=== PATIENT | male | born 1990 | race Caucasian/White ===

== ENCOUNTER 2018-08-04 22:33 | Emergency (ER) | payer SELFPAY ==
[2018-08-04 22:34] VITALS: BP 129/83; PULSE 94; RESP 16; TEMP 37.1; O2SAT 99; BMI 19.6
[2018-08-04 22:43] VITALS: PULSE 83; RESP 14; O2SAT 98
--- NOTE | 2018-08-04 22:58 | ED.VISSUMM ---
- ER Visit Summary Date of Service: 08/04/18 Chief Complaint: Vomiting History of Present Illness: The patient is a 28 M presenting with vomiting and diarrhea. Patient states this started this morning. He has had multiple episodes of vomiting and diarrhea. He denies blood in his stool or emesis. He states he started having lower back pain after vomiting. He believes he may have strained his back while vomiting. He states his symptoms started after drinking a Monster drink this morning. He denies sick contacts. Denies recent antibiotics. Denies recent travel. He complains of right ear pain which has been intermittent for the past year. He denies other complaints. Physical Examination: Vitals are stable. Patient is afebrile. Alert no acute distress. HEENT exam is unremarkable. TMs normal bilaterally Neck is supple. Lungs are clear and equal bilaterally. Heart is regular rate and rhythm. Abdomen is soft mild epigastric tenderness with no rebound or guarding Back: Left paraspinal lumbar muscle tenderness, no midline tenderness Extremities are unremarkable. Skin is warm and dry. No focal neurologic deficit. Remainder of exam is unremarkable. Emergency Department Course and Treatment: Patient was given IV Toradol, Zofran. CBC, chemistries unremarkable other than potassium 3.2. He is given potassium oral replacement. Liver lipase are normal. Urinalysis shows 10-25 white blood cells, 0-5 epithelial cells. Patient denies penile drainage or possibility of STD. Urine culture was sent. He was given Cipro. He is able to tolerate p.o. in the emergency department. Advised to follow-up with Dr. Casillas stone spreader operator for no doc. Advised return to ED if worsening complaints. Disposition: Discharge home Impression: Vomiting and diarrhea; UTI This note was generated with [employer] dictation software. It may contain incorrect words, spelling, and punctuation that were not noted in review of the chart prior to signing ED Disposition - Plan for ED Patient: Instructions: ED Diet Vomiting Diarrhea, ED UTI Cystitis Male Prescriptions: Ciprofloxacin [Cipro] 500 mg PO BID #14 tablet Referrals: Jose Casillas DO [NON CLINICAL AFFILIATE] - Care Physician,No Primary [Primary Care Provider] -
[2018-08-04 23:20] LABS: Bacteria 0 SEEN /hpf (None Seen); Red Blood Cells-Urine 0 SEEN /hpf (0-5)
[2018-08-04 23:23] LABS: Color, Urine Yellow (Yellow); Glucose, Dipstick Normal (Normal); Ketone-Dipstick Negative (Negative); Leukocyte Esterase-Dipstick 100 /ul (Negative); Nitrite-Dipstick Negative (Negative); Occult Blood-Urine Negative /ul (Negative); Protein-Dipstick 15 mg/dl (Negative); Urine Bilirubin Dipstick Negative (Negative); Urine Clarity Sl. Cloudy (Clear); Urine Urobilinogen 4 mg/dl (Normal)
[2018-08-04] MEDS: 0.9% Normal Saline 1,000 ML 1000 ML IV (23:30)
[2018-08-04] MEDS: Ketorolac 30 MG/ML Syringe IV (23:31)
[2018-08-04] MEDS: Ondansetron 4 MG/2 ML Vial IV (23:31)
[2018-08-04 23:40] LABS: Absolute Lymphocyte Count 0.93 X10^3/ul (0.83-4.51); Absolute Neutrophil Count 2.6 X10^3/uL (2.0-7.7); Basophil# 0.01 X10^3/uL; Basophil% 0.2 % (0-1); Eosinophil# 0.04 X10^3/uL; Hematocrit 38.1 % (40-54); Hemoglobin 12.8 g/dl (13.0-16.5); Lymphocyte # 0.93 X10^3/ul (4.0); Lymphocyte % 22.7 % (19-41); Mean Corp Hgb Conc 33.6 g/gl (32-36); Mean Corpuscular Volume 89.2 fL (80-94); Mean Platelet Vol. 10.1 fl (6.2-12.0); Monocyte# 0.57 X10^3/uL; Monocyte% 13.9 % (0-10); Neutrophil # 2.55 X10^3/uL (2.7-7.7); Neutrophil % 62.2 % (47-70); POSITIVE COUNT NO; POSITIVE DIFFERENTIAL NO; POSITIVE MORPHOLOGY NO; Platelet Count 204 K/mm3 (150-450); RBC Distribution Width CV 13.8 % (11.6-14.6); RBC Distribution Width SD 44.8 fl (35.1-43.9); Red Blood Count 4.27 M/mm3 (4.6-6.2); White Blood Count 4.1 K/mm3 (4.4-11.0)
[2018-08-04 23:46] LABS: Mucous, Urine 2+ /hpf (<or=2+); Squamous Epithelial Cells - UA 0-5 SEEN /hpf (0-5)
[2018-08-04 23:49] LABS: White Blood Cells 10-25 SEEN /hpf (0-5)
[2018-08-04 23:50] LABS: ALB/GLOB Ratio 1.4 RATIO (0.9-2.4); AST(SGOT) 16 U/L (15-37); Alanine Aminotransfer ALT/SGPT 19 U/L (16-61); Albumin, Serum 4.1 g/dL (3.2-5.0); Alkaline Phosphatase 43 U/L (45-117); Anion Gap 4 (5-15); BUN 8 mg/dL (7-18); BUN/Creat Ratio 9.4 RATIO (10-20); Calcium,Total 8.4 mg/dL (8.5-10.1); Chloride 105 mmol/L (98-107); Creatinine, Serum 0.85 mg/dL (0.70-1.30); EST Glomerular Filtration Rate 116 mL/min (>60); Est Glom Filt Rate - Afr Amer 141 mL/min (>60); Estimated Creatinine Clearance 125.89 ml/min; Glucose 105 mg/dL (74-106); Lipase 100 U/L (73-393); Potassium 3.2 mmol/L (3.5-5.1); Protein, Total 7.1 g/dL (6.4-8.2); Sodium Level 139 mmol/L (136-145)
[2018-08-04 23:56] VITALS: BP 106/68; PULSE 80; RESP 16; O2SAT 97
--- NOTE | 2018-08-05 00:06 | ED.DEP ---
ED Disposition - Plan for ED Patient: Instructions: ED Diet Vomiting Diarrhea, ED UTI Cystitis Male Prescriptions: Ciprofloxacin [Cipro] 500 mg PO BID #14 tablet Referrals: Care Physician,No Primary [Primary Care Provider] - Jose Casillas DO [NON CLINICAL AFFILIATE] -
[2018-08-05] MEDS: Ciprofloxacin 500 MG Tablet PO (00:16)
[2018-08-05 00:17] VITALS: BP 125/67; PULSE 78; RESP 16; O2SAT 98
== END 2018-08-05 00:19 | disposition home or self-care (01) ==
PROVIDERS: Emergency Provider Emergency Medicine
DX: N39.0 Urinary tract infection, site not specified (principal); R11.2 Nausea with vomiting, unspecified; R19.7 Diarrhea, unspecified; E87.6 Hypokalemia; M54.5 Low back pain; H92.01 Otalgia, right ear
CPT/HCPCS: 80053; 81001; 83690; 85025; 87077; 87086; 87088; 96361; 96374; 96375; 99284; J7030; A4216; J2405

== ENCOUNTER 2018-12-21 08:32 | Emergency (ER) | payer SELFPAY ==
[2018-12-21 08:33] VITALS: BP 140/88; PULSE 58; RESP 17; TEMP 36.5; O2SAT 100; BMI 18.6
[2018-12-21] MEDS: Ibuprofen 600 MG Tablet PO (08:58)
--- NOTE | 2018-12-21 09:00 | ED.DCSUM_ITS ---
History of Present Illness Chief Complaint: Dental Informant: Patient Onset: Hours - 8 Current Severity: Severe Maximum Severity: Severe Narrative: Patient is a 28-year-old male with no significant past medical history p resenting with left lower dental pain. He states it started last night. Pain his been persistent. Patient took Motrin around midnight but has had none since. He denies any associated fever difficulty swallowing. He states he has a bad tooth but is never had problems like this before. He does not currently have a dentist. He does chew tobacco. He denies any fever or chills. He denies any other complaints at this time. Past Medical History - Allergies and Home Meds Allergies/Adverse Reactions: Allergies No Known Allergies Allergy (Verified 12/21/18 08:33) Primary Care Physician: Care Physician,No Primary [Primary Care Provider] - Past Medical History: None Surgical History: noncontributory Smoking Status: Never smoker Review of Systems All systems negative except as indicated General: Denies: Chills ENT: Reports: - - left lower dental pain Physical Exam Vital Signs/Narrative: Vital Signs Temp Pulse Resp BP Pulse Ox 12/21/18 08:33 97.7 F L 58 L 17 140/88 H 100 Inital Vital Signs reviewed: Yes General: Well nourished, Well developed, No Acute Distress Head: Normocephalic, Atraumatic Eyes: Perrl, EOMI ENT: Moist mucous membranes, No rhinorrhea, - - Multiple caries and poor dentition diffusely, pain and swelling at the base of the first lower left molar. Sublingual mucosa is soft Neck: Supple, Nontender, No lymphadenopathy Cardiovascular: Regular rate, Regular rhythm, No murmurs Respiratory: No distress, CTA bilaterally, Chest nontender Abdomen: Soft, Nontender, Nondistended, Normal bowel sounds Back: Nontender, Normal Inspection Extremities: Nontender, No edema Skin: Normal color, No rash Neurological: Alert, Oriented x3, Cranial nerves II-XII grossly intact, Normal Strength, Normal Sensation Psychological: Normal affect, Normal Mood Diagnostic/Tx/Re-eval - Medical Decision Making He is evaluated for dental pain. He appears nontoxic in no acute distress. He does not have an obvious abscess but he does have swelling of the gums next to his affected tooth. Nerve block is performed with improvement of his symptoms. A stab incision is made to the site but no purulence is expressed. Patient is given a dose of Motrin as well as penicillin in the ER for suspected dental infection. He is given the dental referral sheet. Patient is counseled on signs and symptoms requiring return to the emergency room. Patient verbalizes agreement and understand this plan. Patient discharged home in stable and improved condition. Procedures Procedure(s): Dental block. 3 cc of 1% lidocaine injected into the left side for the inferior alveolar block. 0.5 cc of 1% lidocaine injected at the base of the affected molar for pupil block. Patient tolerated procedure well with good results. No immediate complication. ED Disposition - Plan for ED Patient: Disposition: Home or Assisted Living Diagnosis: Abscess, dental Instructions: Dental Abscess Prescriptions: Ibuprofen 600 mg PO 4X/DAY #20 tab Prescription Printed Penicillin V Potassium 500 mg PO 4X/DAY #40 tab Prescription Printed Referrals: Care Physician,No Primary [Primary Care Provider] -
[2018-12-21] MEDS: Penicillin Vk 250 MG Tablet 500 MG PO (09:22)
== END 2018-12-21 09:24 | disposition home or self-care (01) ==
PROVIDERS: Emergency Provider Emergency Medicine
DX: K04.7 Periapical abscess without sinus (principal); K02.9 Dental caries, unspecified; F17.220 Nicotine dependence, chewing tobacco, uncomplicated
CPT/HCPCS: 41800; 64402; 99283

== ENCOUNTER 2021-12-26 12:23 | Emergency (ER) | payer MEDICAID, SELFPAY ==
[2021-12-26 12:24] VITALS: BP 133/85; PULSE 114; RESP 22; TEMP 36.2; O2SAT 99; BMI 19.1
--- NOTE | 2021-12-26 13:15 | ED.VIS.DENTA ---
HPI History of Present Illness Chief Complaint: Dental Informant: patient Onset/Context/Timing Onset: Today Context: Sudden Onset Timing: Continuous Quality: Throbbing Location: Left upper incisors Worsened by: Cold liquids Relieved by: - (Nothing) Associated Symptoms Assocated Symptom - Dental: face swelling and cold sensitivity; Negative for fever, jaw swelling or hot sensitivity Narrative Narrative: Patient presents with left upper dental pain that began this morning. Patient states he woke up and noticed some swelling over his left upper cheek area. Patient describes his pain as throbbing. Patient states it is worse with drinking cold liquids. Patient states it is mainly over the left upper incisors. Patient denies any fevers or chills. Patient denies any hot sensitivity. Patient denies any difficulty breathing or difficulty swallowing. PFSH PFSH Medical History no medical history no medical history Home Medications ibuprofen 600 mg tablet 600 mg PO 4X/DAY #20 tabs 12/21/18 [Rx Last Taken Unknown] penicillin V potassium 500 mg tablet 500 mg PO 4X/DAY #40 tabs 12/26/21 [Rx Last Taken Unknown] Allergy/AdvReac Type Severity Reaction Status Date / Time No Known Allergies Allergy Verified 12/26/21 12:24 Surgical History no surgical history no surgical history Social History Smoking Status: Never smoker ROS ROS ED Constitutional Constitutional ED: Denies chills or fever(s) Eyes Eyes: Denies blurry vision or change in vision ENT ENT ED: Reports rhinorrhea; Denies sore throat Cardiovascular Cardiovascular: Denies chest pain or palpitations Respiratory/Chest Respiratory/Chest: Denies cough or dyspnea Gastrointestinal Gastrointestinal: Denies nausea or vomiting Genitourinary Genitourinary ED: Denies dysuria or hematuria Musculoskeletal Musculoskeletal: Denies back pain or neck pain Integumentary Denies abscess or rash Neurologic Neurologic: Denies headache(s) or weakness Allergic/Immunologic Allergic/Immunologic ED: Denies mouth swelling or urticaria EXAM Physical Exam Const Vital Signs: 12/26/21 12:24 Temperature 97.2 F L Temperature Source Temporal Pulse Rate 114 H Respiratory Rate 22 H Blood Pressure 133/85 H Blood Pressure Mean 101 Pulse Ox 99 Oxygen Delivery Method Room Air Positive well nourished and well developed General Appearance ED: well developed and NAD HEENT HEENT Narrative: There is tenderness over the left upper incisors. There are no obvious dental caries. There are some gingival edema around these teeth. There is no fluctuance. There is no discharge or drainage. Oral mucosa is pink and moist. Oropharynx is clear. Airway is patent. Neck is supple. Trachea is midline. There is no JVD or lymphadenopathy. There is no sublingual edema or erythema. There is no evidence of Tin's angina. Mouth ED: Yes oral and palatal mucosa normal Mouth: oral and palatal mucosa normal Teeth and Gingiva: gingiva abnormal Positive for gingival edema Eyes PERRL and EOMs intact bilaterally Neck supple and no JVD General: normal visual inspection; Negative for anterior neck swelling, tenderness or submandibular swelling Resp normal respiratory effort and clear to auscultation bilaterally Cardio regular rate and regular rhythm Neuro oriented x3, CN's II-XII intact bilaterally, moves all extremities, no focal motor deficits and no sensory deficits noted Sensorium / Orientation: alert Motor Exam: strength 5/5 throughout Psych mental status grossly normal MDM MDM MDM Narrative Medical decision making narrative: Patient was given a dose of Pen-Vee K here. Patient was given a prescription for Pen-Vee K. Patient was given a dental referral list. Patient was instructed to take Tylenol or ibuprofen as needed for pain. Patient was instructed to follow-up with a dentist in 5 to 7 days. Patient understood and was agreeable with the plan. All questions were answered. Discharge Plan Triage Chief Complaint: Dental Other Complaint: Allergic Reaction ED Provider: Tonny Strickland Dx/Rx/DC Orders Clinical Impression: Gingivitis Instructions: ED Dental Pain Prescriptions: Continued penicillin V potassium 500 MG tablet 500 mg PO 4X/DAY Qty: 40 0RF No Action ibuprofen 600 MG tablet 600 mg PO 4X/DAY Qty: 20 0RF Primary Care Provider: Care Physician,No Primary Referrals: Care Physician,No Primary [Primary Care Provider] - Dentist,Your [STAFF PHYSICIAN] - 5-7 Days Disposition Disposition: Home, Self Care
== END 2021-12-26 13:30 | disposition home or self-care (01) ==
PROVIDERS: Emergency Provider Emergency Medicine; Visit Provider Emergency Medicine
DX: K05.10 Chronic gingivitis, plaque induced (principal)
CPT/HCPCS: 99282

== ENCOUNTER 2022-09-01 12:00 | Emergency (ER) | payer MEDICAID, SELFPAY ==
[2022-09-01 12:01] VITALS: BP 144/80; PULSE 81; RESP 16; TEMP 36.4; O2SAT 100; BMI 19.4
[2022-09-01] MEDS: Ibuprofen 600 MG Tablet PO (12:32)
--- NOTE | 2022-09-01 12:44 | EDS_ITS ---
HPI History of Present Illness Chief Complaint: Upper Extremity Injury Informant: patient Narrative Narrative: Right hand dominant male increasing right upper arm pain today. Was helping his father lift and move refrigerator 4 days ago states mild symptoms Saturday and . 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 There is no direct injuries. There is no new injuries. Pain just worsened today with movement. No paresthesias. Prior similar symptoms: No PFSH PFSH Home Medications ibuprofen 600 mg tablet 600 mg PO 4X/DAY #20 tabs 12/21/18 [Rx Last Taken Unknown] penicillin V potassium 500 mg tablet 500 mg PO 4X/DAY #40 tabs 12/26/21 [Rx Last Taken Unknown] ibuprofen 600 mg tablet 600 mg PO Q6H PRN PRN pain #20 TABLETS 09/01/22 [Rx Last Taken Unknown] Allergy/AdvReac Type Severity Reaction Status Date / Time No Known Allergies Allergy Verified 09/01/22 12:03 Social History Smoking Status: Never smoker ROS ROS ED Constitutional Constitutional ED: Denies chills, fever(s) or sweats Eyes Eyes: Denies change in vision ENT ENT ED: Denies dysphagia or sore throat Cardiovascular Cardiovascular: Denies chest pain, leg edema, palpitations or racing heartbeat Respiratory/Chest Respiratory/Chest: Denies cough, dyspnea or dyspnea on exertion Gastrointestinal Gastrointestinal: Denies abdominal pain, diarrhea, nausea or vomiting Genitourinary Genitourinary ED: Denies dysuria, hematuria or urinary frequency Musculoskeletal Musculoskeletal: Reports extremity pain; Denies back pain or neck pain Integumentary Denies rash or wounds Neurologic Neurologic: Denies headache(s), paresthesias or weakness EXAM Physical Exam Const Vital Signs: 09/01/22 12:01 Temperature 97.5 F L Temperature Source Temporal Pulse Rate 81 Respiratory Rate 16 Blood Pressure 144/80 H Blood Pressure Mean 101 Pulse Ox 100 Oxygen Delivery Method Room Air Positive well nourished and well developed General Appearance ED: well developed and NAD HEENT Reports moist mucous membranes normocephalic and atraumatic Eyes PERRL, EOMs intact bilaterally and conjunctivae normal General Eye ED: Yes normal appearance of both eyes Neck no lymphadenopathy and supple General: Negative for tenderness Chest Wall Chest: Negative for tenderness Resp normal respiratory effort and normal air movement Effort and Inspection: symmetric chest movement; Negative for respiratory distress Cardio regular rate, regular rhythm and no murmurs Peripheral Pulses: pulses 2+ throughout GI normal to inspection, nondistended, normoactive bowel sounds and non-tender Palpation: Negative for guarding or rebound tenderness present Back/Spine no CVA tenderness and no thoracic nor lumbar tenderness Extremity Extremity Narrative: Left upper extremity: Full range of motion without tenderness neuro vas intact distally. Right upper extremity: No deformities, tender palpation posterior shoulder reproducible with external rotation against resistance. There is tenderness also along the biceps. There is no defects. Negative speeds test. Skin intact. Neuro vas intact distally. General Extremety ED: Yes tenderness; Negative for edema General Extremity: Negative for edema Neuro oriented x3 and no sensory deficits noted Sensorium / Orientation: awake and alert Skin no rashes or lesions noted and no wounds MDM MDM MDM Narrative Medical decision making narrative: Interventions / MDM: Differential diagnosis: Muscle strain biceps muscle and rotator cuffs. Diagnosis considered but do not suspect: No clinical dislocation concerns. No clinical fracture concerns. My EKG interpretation: N/A Imaging independently reviewed and interpreted by myself: N/A External documents reviewed: N/A Test considered but not ordered:N/A ED course: Patient nontoxic exam concerns more consistent of strain of muscles both biceps and rotator cuff. No deformities. He started on NSAID therapy. He denies gastric ulcers kidney injuries or any irritable bowel disease. He is given follow-up as an outpatient. Work note given for today. Re-evaluation: stable Disposition discussed with patient/family/significant other: Patient Case discussed with consulting clinician: N/A Discharge Plan Triage Chief Complaint: Upper Extremity Injury ED Provider: Sean Kincaid Dx/Rx/DC Orders Clinical Impression: Muscle strain of right upper arm, Arm pain, right Instructions: ED Muscle Strain, Extremity Prescriptions: New ibuprofen 600 mg tablet 600 mg PO Q6H PRN PRN (Reason: pain) Qty: 20 0RF No Action ibuprofen 600 MG tablet 600 mg PO 4X/DAY Qty: 20 0RF penicillin V potassium 500 MG tablet 500 mg PO 4X/DAY Qty: 40 0RF Stand Alone Forms: ED Work / School Excuse Primary Care Provider: Care Physician,No Primary Referrals: Babatunde Santiago MD [Med Staff - Active Staff] - 1 Week if not improving Care Physician,No Primary [Primary Care Provider] - Disposition Disposition: Home, Self Care Discharge Date/Time: 09/01/22 12:41
== END 2022-09-01 12:41 | disposition home or self-care (01) ==
PROVIDERS: Emergency Provider Emergency Medicine; Visit Provider Emergency Medicine
DX: S46.911A Strain of unspecified muscle, fascia and tendon at shoulder and upper arm level, right arm, initial encounter (principal); X50.0XXA Overexertion from strenuous movement or load, initial encounter
CPT/HCPCS: 99283